=== PATIENT | female | born 1960 | race Caucasian/White ===

== ENCOUNTER 2016-12-09 18:07 | Emergency (ER) | payer SELFPAY ==
[~2016-12-09] VITALS: Ht 172.7 cm; Wt 121.8 kg
[~2016-12-09 18:07] MED LIST: ALBUTEROL SULFAT3 M3 IH; BYSTOLIC5 MG PO; CARISOPRODOL350 MG PO; COREG 6.256.25 MG/TA PO; COUGH; COZAAR 50MG50 MG/TAB PO; DICYCLOMINE10 MG PO; HCTZ 25MG TAB25 MG PO; LASIX 40MG TABL40 MG PO; LEVAQUIN 750MG750 M1 PO; LEVAQUIN 750MG750 MG PO; LEVOTHYROXINE0.2 MG PO; NITROGLYCERIN0.4 MG SL; NORVASC5 MG PO; OXYCODONE/APAP1 TA4 PO; OXYCODONE40 MG PO; PERCOCET 325 MG1 TA2 PO; PHENERGAN W/CO120 ML PO; PREDNISONE20 MG PO; PROAIR; RT SPIRIVA18 MCG IH; SOMA 350MG350 MG/TAB PO; SPIRIVA HANDIH18 MCG IH; SYNTHROID0.3 MG PO; VENTOLIN0.09 MG IH; ZESTRIL 10MG10 MG PO; ZITHROMAX 250M250 MG PO; ZOLPIDEM10 MG PO; [UNRECOGNIZED DRUG - OTHER]; [UNRECOGNIZED DRUG - OTHER] TD
[2016-12-09 19:12] LABS: BASO # 0.1 (0.0-0.2); BASO % 0.5 % (0.0-2.0); EOS # 0.2 (0.0-0.7); EOS % 1.7 % (0-4.0); GRAN # 7.4 (1.4-6.5); GRAN % 64.2 % (42.2-75.2); HEMATOCRIT 45.8 % (37.0-47.0); HEMOGLOBIN 14.6 g/dl (12.5-16.0); LYMPH # 2.9 (1.2-3.4); LYMPH % 25.4 % (20.0-51.0); MEAN CELL VOLUME 90 fl (80.0-100.0); MEAN CORPUSCULAR HEMOGLOBIN 29 pg (27.0-31.0); MEAN CORPUSCULAR HGB CONC 32 g/dl (33.0-37.0); MONO # 0.9 (0.1-0.6); MONO % 7.8 % (1.7-9.3); PLATELET COUNT 229 K/mm3 (130-400); RED BLOOD COUNT 5.08 M/mm3 (4.10-5.30); REDCELL DISTRIBUTION WIDTH-CV 13.9 % (11.5-14.5); WHITE BLOOD COUNT 11.5 K/mm3 (4.8-10.8)
[2016-12-09 19:24] LABS: CALCIUM 9.3 mg/dL (8.4-10.2); CREATININE, serum 1.16 mg/dL (0.52-1.25); POTASSIUM 3.7 mmol/L (3.4-5.0)
[2016-12-09 19:43] LABS: INFLUENZA B NEGATIVE
[2016-12-09] MEDS ORDERED: ALBUTEROL0.83 MG/ML IH (20:27)
[2016-12-09] MEDS ORDERED: LEVAQUIN 750MG750 M1 PO (20:27)
[2016-12-09] MEDS ORDERED: TUSS PO (20:27)
[2016-12-09] MEDS ORDERED: PREDNISONE10 MG PO (20:27)
[2016-12-09 20:44] VITALS: BP 164/95; PULSE 66; TEMP 97.9
== END 2016-12-09 20:46 | disposition home or self-care (01) ==
LOC: COL.ER 18:07
PROVIDERS: Emergency Medicine
DX: J18.9 Pneumonia, unspecified organism (principal); J45.901 Unspecified asthma with (acute) exacerbation; R07.89 Other chest pain; I10 Essential (primary) hypertension
CPT/HCPCS: J7512

== ENCOUNTER 2017-05-07 11:45 | Emergency (ER) | payer SELFPAY ==
[~2017-05-07] VITALS: Ht 172.7 cm; Wt 129.5 kg
[~2017-05-07 11:45] MED LIST changes: +ALBUTEROL0.83 MG/ML IH; +PREDNISONE10 MG PO; +TUSS PO
[2017-05-07 11:52] VITALS: TEMP 98
[2017-05-07 13:01] LABS: BASO # 0.1 (0.0-0.2); BASO % 0.8 % (0.0-2.0); EOS # 0.2 (0.0-0.7); EOS % 2.1 % (0-4.0); GRAN # 5.4 (1.4-6.5); GRAN % 60.1 % (42.2-75.2); HEMATOCRIT 45.7 % (37.0-47.0); LYMPH # 2.7 (1.2-3.4); LYMPH % 29.3 % (20.0-51.0); MEAN CELL VOLUME 92 fl (80.0-100.0); MEAN CORPUSCULAR HEMOGLOBIN 30 pg (27.0-31.0); MEAN CORPUSCULAR HGB CONC 33 g/dl (33.0-37.0); MEAN PLATELET VOLUME 10.4 fl (7.4-10.4); MONO # 0.7 (0.1-0.6); MONO % 7.4 % (1.7-9.3); PLATELET COUNT 213 K/mm3 (130-400); RED BLOOD COUNT 4.95 M/mm3 (4.10-5.30); REDCELL DISTRIBUTION WIDTH-CV 14.7 % (11.5-14.5); WHITE BLOOD COUNT 9.1 K/mm3 (4.8-10.8)
[2017-05-07 13:28] LABS: PH 6 (5-8); SQUAMOUS EPITHELIAL 0-2 /hpf; URINE APPEARANCE Clear; URINE BACTERIA Rare /hpf; URINE BILIRUBIN Negative (NEGATIVE); URINE BLOOD Negative (NEGATIVE); URINE COLOR Yellow; URINE GLUCOSE Negative (NEGATIVE); URINE KETONE Negative (NEGATIVE); URINE RBC 0-2 /hpf; URINE UROBILINOGEN Negative (NEGATIVE); URINE WBC 0-2 /hpf
[2017-05-07 13:50] LABS: ADJUSTED CALCIUM 8.8 mg/dL (8.4-10.2); BILIRUBIN,TOTAL 0.5 mg/dL (0.0-1.0); C-REACTIVE PROTEIN 1.2 mg/dL (0.0-0.9); CALCIUM 8.8 mg/dL (8.4-10.2); CREATININE, serum 1.11 mg/dL (0.52-1.25); POTASSIUM 3.5 mmol/L (3.4-5.0); TOTAL PROTEIN 7.6 gm/dL (6.4-8.2)
[2017-05-07] MEDS ORDERED: NORCO 325 MG-51 TAB PO (15:07)
[2017-05-07] MEDS ORDERED: ZOFRAN 4MG T4 MG/TAB PO (15:07)
[2017-05-07 15:19] VITALS: BP 137/97; PULSE 68
== END 2017-05-07 15:20 | disposition home or self-care (01) ==
LOC: COL.ER 11:45
PROVIDERS: Nurse Practitioner
DX: R10.11 Right upper quadrant pain (principal); R11.10 Vomiting, unspecified; I25.10 Atherosclerotic heart disease of native coronary artery without angina pectoris; E11.9 Type 2 diabetes mellitus without complications; Z79.84 Long term (current) use of oral hypoglycemic drugs; Z87.442 Personal history of urinary calculi; I10 Essential (primary) hypertension; G43.909 Migraine, unspecified, not intractable, without status migrainosus; Z90.5 Acquired absence of kidney
CPT/HCPCS: J2270; J2765; Q9967